=== PATIENT | male | born 1995 | race Caucasian/White ===

== ENCOUNTER 2018-01-14 07:52 | Emergency (ER) | payer BC | END 2018-01-14 08:55 | disposition home or self-care (01) | LOC: MADERS 07:52 | DX: J03.90 Acute tonsillitis, unspecified (principal); F17.210 Nicotine dependence, cigarettes, uncomplicated | CPT/HCPCS: 96372; J1040 ==

== ENCOUNTER 2020-09-24 13:32 | Emergency (ER) | payer BC ==
--- NOTE | 2020-09-24 14:59 | RAD ---
LEFT FOOT TWO VIEWS: History: Injury, left foot pain. Evaluate for foreign body. FINDINGS: No acute fracture or dislocation is seen. No radiopaque foreign body is identified. IMPRESSION: As above. POS: OFF
[2020-09-24] MEDS ORDERED: Triple Antibiotic Oint 1 GM Packet ONE (15:18)
[2020-09-24] MEDS ORDERED: Cephalexin 500 MG CAP ONE (15:18)
== END 2020-09-24 15:23 | disposition home or self-care (01) ==
LOC: MADERS 13:32
DX: S91.332A Puncture wound without foreign body, left foot, initial encounter (principal); F17.210 Nicotine dependence, cigarettes, uncomplicated; W26.8XXA Contact with other sharp object(s), not elsewhere classified, initial encounter

== ENCOUNTER 2025-09-26 15:34 | Emergency (ER) | payer BC ==
[2025-09-26 16:12] LABS: #Basophils 0.1 thou/uL (0.0-0.2); #Eosinophils 0.1 thou/uL (0.0-0.7); #Lymphocytes 1.4 thou/uL (1.20-3.40); #Monocytes 0.5 thou/uL (0.11-0.59); #Neutrophils 4.8 thou/uL (1.40-6.50); %Basophils 1.2 % (0.0-1.0); %Eosinophils 1.6 % (0.0-10.0); %Lymphocytes 20.5 % (21.0-51.0); %Monocytes 6.9 % (0.0-10.0); %Neutrophils 69.8 % (42.0-75.0); Hematocrit 48.1 % (42.0-52.0); Hemoglobin 15.2 g/dL (14.0-18.0); Mean Corpuscular Hemoglobin 28.4 pg (27.0-31.0); Mean Corpuscular Volume 89.6 fl (78.0-98.0); Platelet Count 337 10x3/uL (130-400); Red Blood Cell (RBC) Count 5.37 mill/uL (4.70-6.10); White Blood Cell (WBC) Count 6.9 10x3/uL (4.8-10.8)
[2025-09-26 16:16] LABS: Glucose, Urine (Dipstick) Negative (Negative); Leukocyte Moderate (Negative); Protein, Urine (Dipstick) 30 mg/dL (Neg-Trace); Specific Gravity, Urine 1.020 (1.005-1.030)
[2025-09-26 16:19] LABS: Bacteria/HPF 4+ HPF (None Seen); CAUTI Indications for Culture Dysuria,urgency,freq; Cocaine Metabolite Screen Negative (Negative); RBC/HPF None Seen HPF (0-3); THC/Cannabinoid Screen PRELIM POSITIVE (Negative); Tricyclic Screen Negative (Negative); Urine Culture Reflex Yes Yes; WBC/HPF 21-50 HPF (0-3)
[2025-09-26 16:30] LABS: ALT (SGPT) 20 U/L (Less than 45); AST (SGOT) 23 U/L (11-34); Acetaminophen Less than 10 mcg/mL (Less than 10); Albumin 5.0 g/dL (3.1-4.5); Alkaline Phosphatase 41 U/L (40-110); Anion Gap 18 mmol/L (10-20); BUN (Urea Nitrogen) 11 mg/dL (8.9-20.6); Bilirubin, Total 0.5 mg/dL (0.3-1.2); CK (CPK) 238 U/L (30-200); Calc. Creatinine Clearance 0 mL/min (70-130); Calcium 9.5 mg/dL (7.8-10.44); Carbon Dioxide 21 mmol/L (22-29); Chloride 106 mmol/L (98-107); Globulin 3.0 g/dL (2.4-3.5); Glucose 93 mg/dL (70-105); Potassium 3.7 mmol/L (3.5-5.1); Salicylate Less than 8.0 mg/dL (Less than 8.0); Sodium 141 mmol/L (136-145)
[2025-09-26] MEDS ORDERED: Sulfameth/Trimethoprim DS 800-160mg TAB ONE (17:21)
== END 2025-09-26 19:46 | disposition home or self-care (01) ==
LOC: MADERS 15:34
DX: R45.851 Suicidal ideations (principal); R82.71 Bacteriuria; F32.A Depression, unspecified; F17.290 Nicotine dependence, other tobacco product, uncomplicated; F17.210 Nicotine dependence, cigarettes, uncomplicated
CPT/HCPCS: 70450; 80053; 80306; 80307; 81001; 82550; 84443; 85025; 87077; 87086; 87186; 93005